=== PATIENT | female | born 2000 | race Caucasian/White ===

== ENCOUNTER 2022-11-18 15:34 | Emergency (ER) | payer BC, MEDICAID ==
[~2022-11-18] VITALS: Ht 167 cm; Wt 108.8 kg
[2022-11-18] MEDS ORDERED: FAMOTIDINE INJ 20MG/2ML VIAL IV STA (15:44)
[2022-11-18] MEDS ORDERED: NS IV 1000 ML 1,000 ML IV STA (15:44)
--- NOTE | 2022-11-18 15:44 | ED Abdominal Pain ---
General Stated Complaint: VOMITTING,ABD PAIN FOR 12 DAYS History of Present Illness Date Seen by Provider: Nov 18, 2022 Time Seen by Provider: 15:42 Initial Comments 22-year-old female presents with abdominal pain that comes and goes. She reports its been going on for about the last 12 days. That when she gets the pain it is severe enough that causes her to vomit. The pain is more in upper abdomen epigastric and maybe little bit to the right. She still has her gallbladder. She is 2 months . With spontaneous vaginal delivery. She does not have anything that causes her to develop the pain. Allergies and Home Medications Allergies Coded Allergies: No Known Drug Allergies (Unverified , 11/18/22) Patient Home Medication List Home Medication List Reviewed: Yes Dicyclomine HCl (Dicyclomine HCl) 20 Mg Tablet, 20 MG PO TID PRN for ABDOMINAL PAIN Prescribed by: BRENNA WONG on 11/18/22 1628 Ondansetron (Ondansetron Odt) 4 Mg Tab.rapdis, 4 MG PO Q6H PRN for NAUSEA/VOMITING Prescribed by: BRENNA WONG on 11/18/22 1628 Review of Systems Review of Systems Constitutional: no symptoms reported EENTM: No Symptoms Reported Gastrointestinal: See HPI, Abdominal Pain, Nausea, Vomiting Genitourinary: No Symptoms Reported Musculoskeletal: no symptoms reported Skin: no symptoms reported Psychiatric/Neurological: No Symptoms Reported Physical Exam Vital Signs Vital Signs - First Documented 11/18/22 15:35 Temp 36.7 Pulse 74 Resp 16 B/P (MAP) 136/85 (102) Pulse Ox 98 O2 Delivery Room Air Capillary Refill : Height/Weight/BMI Height: '" Weight: lbs. oz. kg; BMI Method: General Appearance: WD/WN, no apparent distress, obese Respiratory: lungs clear, normal breath sounds Cardiovascular: normal peripheral pulses, regular rate, rhythm, no edema Gastrointestinal: non tender, soft; No distended Extremities: normal range of motion, non-tender Neurologic/Psychiatric: alert, normal mood/affect, oriented x 3 Skin: normal color, warm/dry Progress/Results/Core Measures Results/Orders Lab Results Laboratory Tests Test 11/18/22 15:48 11/18/22 15:50 Range/Units White Blood Count 6.1 4.3-11.0 10^3/uL Red Blood Count 4.38 3.80-5.11 10^6/uL Hemoglobin 10.7 L 11.5-16.0 g/dL Hematocrit 35 35-52 % Mean Corpuscular Volume 80 80-99 fL Mean Corpuscular Hemoglobin 24 L 25-34 pg Mean Corpuscular Hemoglobin Concent 31 L 32-36 g/dL Red Cell Distribution Width 14.7 H 10.0-14.5 % Platelet Count 255 130-400 10^3/uL Mean Platelet Volume 10.6 9.0-12.2 fL Immature Granulocyte % (Auto) 0 % Neutrophils (%) (Auto) 54 42-75 % Lymphocytes (%) (Auto) 31 12-44 % Monocytes (%) (Auto) 9 0-12 % Eosinophils (%) (Auto) 5 0-10 % Basophils (%) (Auto) 0 0-10 % Neutrophils # (Auto) 3.3 1.8-7.8 10^3/uL Lymphocytes # (Auto) 1.9 1.0-4.0 10^3/uL Monocytes # (Auto) 0.6 0.0-1.0 10^3/uL Eosinophils # (Auto) 0.3 0.0-0.3 10^3/uL Basophils # (Auto) 0.0 0.0-0.1 10^3/uL Immature Granulocyte # (Auto) 0.0 0.0-0.1 10^3/uL Percent Immature Platelet Fraction 3.4 0.0-7.6 % Sodium Level 141 135-145 MMOL/L Potassium Level 3.7 3.6-5.0 MMOL/L Chloride Level 103 98-107 MMOL/L Carbon Dioxide Level 24 21-32 MMOL/L Anion Gap 14 5-14 MMOL/L Blood Urea Nitrogen 10 7-18 MG/DL Creatinine 0.60 0.60-1.30 MG/DL Estimat Glomerular Filtration Rate 131 BUN/Creatinine Ratio 17 Glucose Level 98 70-105 MG/DL Calcium Level 9.5 8.5-10.1 MG/DL Corrected Calcium 9.4 8.5-10.1 MG/DL Magnesium Level 2.1 1.6-2.4 MG/DL Total Bilirubin 0.2 0.1-1.0 MG/DL Aspartate Amino Transf (AST/SGOT) 19 5-34 U/L Alanine Aminotransferase (ALT/SGPT) 21 0-55 U/L Alkaline Phosphatase 100 40-136 U/L C-Reactive Protein 1.02 H <0.50 MG/DL Total Protein 7.6 6.4-8.2 GM/DL Albumin 4.1 3.2-4.5 GM/DL Lipase 20 8-78 U/L Urine Color YELLOW Urine Clarity CLEAR Urine pH 5.5 5-9 Urine Specific [place] >=1.030 1.016-1.022 Urine Protein NEGATIVE NEGATIVE Urine Glucose (UA) NEGATIVE NEGATIVE Urine Ketones NEGATIVE NEGATIVE Urine Nitrite NEGATIVE NEGATIVE Urine Bilirubin NEGATIVE NEGATIVE Urine Urobilinogen 0.2 < = 1.0 MG/DL Urine Leukocyte Esterase NEGATIVE NEGATIVE Urine RBC (Auto) NEGATIVE NEGATIVE Urine RBC RARE /HPF Urine WBC RARE /HPF Urine Squamous Epithelial Cells 25-50 H /HPF Urine Crystals NONE /LPF Urine Bacteria FEW H /HPF Urine Casts /LPF Urine Mucus NEGATIVE /LPF Urine Culture Indicated NO Urine Test NEGATIVE NEGATIVE My Orders Orders - WONG,BRENNA L DO Cbc And Automated Diff (11/18/22 15:44) Comprehensive Metabolic Panel (11/18/22 15:44) Hcg,Qualitative Urine (11/18/22 15:44) Lipase (11/18/22 15:44) Magnesium (11/18/22 15:44) Ua Culture If Indicated (11/18/22 15:44) Crp Fs (11/18/22 15:44) Ns Iv 1000 Ml (Ns Iv 1000 Ml) (11/18/22 15:44) Famotidine Injection (Famotidine Injec (11/18/22 15:44) Vital Signs/I&O 11/18/22 11/18/22 15:35 16:46 Temp 36.7 Pulse 74 68 Resp 16 16 B/P (MAP) 136/85 (102) 120/53 Pulse Ox 98 99 O2 Delivery Room Air Room Air Progress Progress Note : Progress Note Patient's diagnostics as ordered reviewed and interpreted by me. Patient had no acute findings on labs. She was not having any abdominal pain upon presentati on. She has no pain on palpitation of her abdomen. Her discomfort appears to be in the upper mid abdomen area which would most likely be a gastritis versus GERD. At this time I do not feel there is any need for advanced or further imaging. I did recommend she start famotidine twice daily, she should follow-up with her primary care provider for further evaluation if her symptoms continue. I will also provide her some Bentyl to help with any spasms. She was stable and discharged home Departure Impression Primary Impression: Abdominal pain Qualified Codes: R10.13 - Epigastric pain Additional Impressions: Nausea and vomiting Qualified Codes: R11.2 - Nausea with vomiting, unspecified Gastritis and gastroduodenitis Disposition: HOME, SELF-CARE Condition: Stable Departure-Patient Inst. Patient Instructions: Gastritis ED, Nausea and Vomiting, Adult ED Add. Discharge Instructions: Follow up with your primary care provider in 1 week. 20 mg famotidine/pepcid twice daily Scripts Dicyclomine HCl (Dicyclomine HCl) 20 Mg Tablet 20 MG PO TID PRN for ABDOMINAL PAIN, #14 TAB Prov: BRENNA WONG DO 11/18/22 Ondansetron (Ondansetron Odt) 4 Mg Tab.rapdis 4 MG PO Q6H PRN for NAUSEA/VOMITING, #8 TAB 0 Refills Prov: BRENNA WONG DO 11/18/22 BRENNA WONG DO Nov 18, 2022 15:44
[2022-11-18 16:00] LABS: BILIRUBIN,URINE NEGATIVE (NEGATIVE); CLARITY,URINE CLEAR; COLOR,URINE YELLOW; GLUCOSE, URINE (UA) NEGATIVE (NEGATIVE); KETONES,URINE NEGATIVE (NEGATIVE); LEUKOCYTE ESTERASE ,URINE NEGATIVE (NEGATIVE); NITRITE,URINE NEGATIVE (NEGATIVE); PH,URINE 5.5 (5-9); PROTEIN,URINE NEGATIVE (NEGATIVE)
[2022-11-18 16:10] LABS: BACTERIA,URINE FEW /HPF; RBC,URINE RARE /HPF; SQUAMOUS EPITHELIAL CELL,UR 25-50 /HPF; WBC,URINE RARE /HPF
[2022-11-18 16:11] LABS: BASOPHILS % (AUTO) 0 % (0-10); EOSINOPHILS # (AUTO) 0.3 10^3/uL (0.0-0.3); EOSINOPHILS % (AUTO) 5 % (0-10); HEMATOCRIT 35 % (35-52); HEMOGLOBIN 10.7 g/dL (11.5-16.0); LYMPHOCYTES # (AUTO) 1.9 10^3/uL (1.0-4.0); LYMPHOCYTES % (AUTO) 31 % (12-44); MEAN CORPUSCULAR HEMOGLOBIN 24 pg (25-34); MEAN CORPUSCULAR HGB CONC 31 g/dL (32-36); MEAN CORPUSCULAR VOLUME 80 fL (80-99); MEAN PLATELET VOLUME 10.6 fL (9.0-12.2); MONOCYTES # (AUTO) 0.6 10^3/uL (0.0-1.0); MONOCYTES % (AUTO) 9 % (0-12); NEUTROPHILS # (AUTO) 3.3 10^3/uL (1.8-7.8); NEUTROPHILS % (AUTO) 54 % (42-75); PLATELET COUNT 255 10^3/uL (130-400); WHITE BLOOD COUNT 6.1 10^3/uL (4.3-11.0)
[2022-11-18 16:19] LABS: ALBUMIN 4.1 GM/DL (3.2-4.5); BILIRUBIN,TOTAL 0.2 MG/DL (0.1-1.0); CALCIUM 9.5 MG/DL (8.5-10.1); CREATININE SERUM 0.6 MG/DL (0.60-1.30); MAGNESIUM 2.1 MG/DL (1.6-2.4); POTASSIUM 3.7 MMOL/L (3.6-5.0); TOTAL PROTEIN 7.6 GM/DL (6.4-8.2)
[2022-11-18] MEDS ORDERED: ONDA4TAB11 PO (16:28)
[2022-11-18] MEDS ORDERED: DICY20TA PO (16:28)
[2022-11-18 16:46] VITALS: BP 120/53
== END 2022-11-18 16:46 | disposition home or self-care (01) ==
LOC: ER FS 15:37
DX: K29.70 Gastritis, unspecified, without bleeding (principal); K29.90 Gastroduodenitis, unspecified, without bleeding; E66.9 Obesity, unspecified; Z68.39 Body mass index [BMI] 39.0-39.9, adult
CPT/HCPCS: 36415; 80053; 81000; 83690; 83735; 84703; 85025; 86141